=== PATIENT | female | born 1950 ===

== ENCOUNTER 2018-09-07 08:31 | Day surgery (SDC) | payer OTHER, MEDICARE ==
[2018-09-07] MEDS ORDERED: Nitroglycerin 50mg in D5W 0 MG/0 ML BOTTLE IV ONE (09:48)
[2018-09-07] MEDS ORDERED: Iodixanol 320 MG/ML 200 ML BOTTLE IV ONE (09:48)
[2018-09-07] MEDS ORDERED: Iodixanol 320 MG/ML 100 ML BOTTLE IV ONE (09:48)
[2018-09-07] MEDS ORDERED: Iohexol 350mgl/ml 50 ML ONE (09:48)
[2018-09-07] MEDS ORDERED: Lidocaine PF 2% (5 ml) Inj (For Cardiac Arrhy) ONE (09:48)
[2018-09-07] MEDS ORDERED: Midazolam 2 MG/2 ML VIAL ONE ×2 (10:14→10:31)
[2018-09-07] MEDS ORDERED: Naloxone 0.4 mg/ml Inj (Adult) ONE (11:08)
--- NOTE | 2018-09-07 11:57 | CARDCATH ---
PROCEDURE DATE: 09/07/2018 HISTORY: The patient is a 68-year-old woman who was transferred from [facility] for cardiac catheterization. The patient presented late with an acute inferior wall NH. The patient's past medical history is notable for diabetes mellitus, hypertension and hypercholesterolemia. She has had a previous stent placed in [facility] years ago. Because of this, catheterization was recommended. PROCEDURE: Left heart catheterization with coronary arteriography and left ventriculogram. The right femoral artery was cannulated with 6-Bolivian sheath. There were no complications. I performed moderate sedation which included the presence of an independent trained observer that assisted in monitoring the patient's level of consciousness and physiologic status. After administration of Versed and fentanyl, my intra-service time was 15 minutes. The findings on catheterization revealed a left ventricle that revealed inferior wall hypokinesis. Estimated ejection fraction of approximately 50%. Her coronary anatomy revealed heavily calcified arteries and diffuse atherosclerosis throughout her coronary tree. The patient had a right dominant circulation. In the proximal portion of the RCA, there is a patent stent, however the RCA is occluded in the midportion. Collaterals were seen going to the distal vessel. The left main artery was diffusely diseased and calcified. There is an eccentric 70% stenoses in the distal portion of the left main artery. The circumflex artery was diffusely diseased with a 90% stenosis at its ostium, followed by a 70% stenosis in the midportion. The LAD revealed diffuse atherosclerosis with a 50% stenosis at its ostium, followed by 70% to 80% stenosis in the midportion. Manual compression was used to close the femoral artery site due to diffuse peripheral vascular disease. The patient tolerated the procedure well. In summary, the procedure revealed diffuse calcification and atherosclerosis throughout her coronary tree. There is an eccentric 70% distal left main stenoses. A 90% ostial circumflex artery as well as disease in the mid circumflex artery. There is diffuse atherosclerosis in the LAD with a critical stenosis in midportion. The RCA is a dominant vessel and is occluded in its midportion. LV function reveals hypokinesia of the inferior wall with the anterior wall preserved with an estimated ejection fraction of approximately 50%. Given these findings, the patient's coronary disease should be treated with coronary artery bypass surgery. I have discussed this with the patient. I have discussed it with her drilling superintendent, Dr. Avila, who will make arrangements to transfer the patient to [facility] for coronary artery bypass surgery. Jim Lopez MD
[2018-09-07 23:10] VITALS: BMI 23.0
[2018-09-08] MEDS: Sodium Chloride 0.9% 1,000 ML IV SCH ×3 (08:52→21:00)
--- NOTE | 2018-09-08 13:21 | CP.PCM.CON ---
<Anirudh Escobar - Last Filed: 09/08/18 16:42> History of Present Illness - History of Present Illness History of Present Illness: Anirudh Escobar PGY1, Critical Care progress note for Dr Luz Maria Diggs Pt is a 68 yo female with a PMH of HTN, HLD, DM, who presented to the emergency department complaining of weakness and disorientation. Pt reports a mechanical fall yesterday. As well as 2 days of nausea and vomiting. Pt was found to have positive troponins and code heart was called. Pt to be transferred to [facility]. PMH: HTN, HLD, DM PSH: cardiac cath in the past Past Patient History - Past Medical History & Family History Past Medical History?: Yes - Past Social History Smoking Status: Never Smoked - CARDIAC Hx Hypercholesterolemia: Yes Hx Hypertension: Yes - PULMONARY Hx Respiratory Disorders: No - NEUROLOGICAL Hx Neurological Disorder: No - HEENT Hx HEENT Problems: Yes Hx Cataracts: Yes (bilat... no surgery yet) - RENAL Hx Chronic Kidney Disease: No - ENDOCRINE/METABOLIC Hx Diabetes Mellitus Type 2: Yes - HEMATOLOGICAL/ONCOLOGICAL Hx Blood Disorders: No - INTEGUMENTARY Hx Dermatological Problems: No - MUSCULOSKELETAL/RHEUMATOLOGICAL Hx Falls: No - GASTROINTESTINAL Hx Gastrointestinal Disorders: No - GENITOURINARY/GYNECOLOGICAL Hx Genitourinary Disorders: No - PSYCHIATRIC Hx Psychophysiologic Disorder: No - SURGICAL HISTORY Hx Surgeries: No Hx Cardiac Catheterization: Yes (ptca) - ANESTHESIA Hx Anesthesia: Yes Hx Anesthesia Reactions: No Meds Allergies/Adverse Reactions: Allergies Allergy/AdvReac Type Severity Reaction Status Date / Time No Known Allergies Allergy Verified 09/05/18 18:48 - Medications Medications: Current Medications Aspirin (Aspirin Chewable) 81 mg PO DAILY [facility] Last Admin: 09/08/18 09:27 Dose: 81 mg Atorvastatin Calcium (Lipitor) 10 mg PO DIN [facility] Last Admin: 09/07/18 18:24 Dose: 10 mg Enoxaparin Sodium (Lovenox) 50 mg SC Q12H [facility]; Protocol Sodium Chloride (Sodium Chloride 0.9%) 1,000 mls @ 100 mls/hr IV .Q10H [facility] Last Admin: 09/08/18 10:29 Dose: 100 mls/hr Physical Exam - Head Exam Head Exam: ATRAUMATIC, NORMOCEPHALIC - Eye Exam Eye Exam: EOMI - ENT Exam ENT Exam: Mucous Membranes Moist - Respiratory Exam Respiratory Exam: Clear to Auscultation Bilateral, NORMAL BREATHING PATTERN. absent: Accessory Muscle Use, Respiratory Distress - Cardiovascular Exam Cardiovascular Exam: RRR, +S1, +S2. absent: Diastolic murmur, Systolic Murmur - GI/Abdominal Exam GI & Abdominal Exam: Normal Bowel Sounds, Soft - Extremities Exam Extremities exam: Positive for: full ROM. Negative for: calf tenderness, pedal edema - Neurological Exam Neurological exam: Alert, Oriented x3 - Psychiatric Exam Psychiatric exam: Normal Affect, Normal Mood - Skin Skin Exam: Dry, Normal Color, Warm Results - Vital Signs Recent Vital Signs: Last Vital Signs Temp 98.5 F 09/08/18 04:00 Pulse 58 L 09/08/18 12:00 Resp 15 09/08/18 12:00 BP 115/52 L 09/08/18 12:00 Pulse Ox 100 09/08/18 12:00 - Labs Labs: Laboratory Results - last 24 hr 09/07/18 21:17 POC Glucose (mg/dL) 130 H Assessment & Plan - Assessment and Plan (Free Text) Assessment: Pt is a 68 yo female with a PMH of HTN, HLD, DM, who presented to the emergency department complaining of weakness and disorientation, pt was found to be having a STEMI. Plan: Neuro - AOx3 - Head CT: no acute findings Cadio - Maintain MAP >65 - Trop 14.9, 27.1, 48.2 - ASA, lipitor, metoprolol - ECHO LVH, EF 55% - Cardiac cath: 90% stenosis of circumflex at the ostium, LAD 50% stenosis at the ostium, with a 70-80% stenosis at the midportion - Cardio consulted, rec CABG at [facility] - ABG 29/7.45/43/27.9 GI - ALT/AST 24/146 - DM diet Heme - monitor H/H - Hgb 10.0 - INR 1.1 Nephro - BUN 35 - Cr 1.2 Endo - maintain euglycemia ID - WBC 15.4 Dispo: pt to be transferred to [facility] for CABG Pt seen, examined, assessment and plan discussed with Dr Luz Maria Escobar PGY1 - Date & Time Date: 09/08/18 Time: 08:00 <Nazanin Diggs - Last Filed: 09/08/18 17:52> Meds - Medications Medications: Current Medications Aspirin (Aspirin Chewable) 81 mg PO DAILY [facility] Last Admin: 09/08/18 09:27 Dose: 81 mg Atorvastatin Calcium (Lipitor) 10 mg PO DIN [facility] Last Admin: 09/08/18 16:11 Dose: 10 mg Enoxaparin Sodium (Lovenox) 50 mg SC Q12H [facility]; Protocol Last Admin: 09/08/18 13:57 Dose: 50 mg Sodium Chloride (Sodium Chloride 0.9%) 1,000 mls @ 100 mls/hr IV .Q10H [facility] Last Admin: 09/08/18 10:29 Dose: 100 mls/hr Metoprolol Tartrate (Lopressor) 12.5 mg PO BID [facility] Last Admin: 09/08/18 17:47 Dose: 12.5 mg Results - Vital Signs Recent Vital Signs: Last Vital Signs Temp 98.7 F 09/08/18 16:00 Pulse 87 09/08/18 17:47 Resp 15 09/08/18 12:00 BP 155/67 H 09/08/18 17:47 Pulse Ox 100 09/08/18 12:00 - Labs Result Diagrams: 09/08/18 13:30 09/08/18 13:30 Labs: Laboratory Results - last 24 hr 09/07/18 09/08/18 09/08/18 21:17 13:30 13:30 WBC 11.5 H RBC 3.29 L Hgb 9.3 L Hct 29.2 L MCV 88.8 MCH 28.3 MCHC 31.8 RDW 13.0 Plt Count 173 MPV 9.5 Sodium 140 Potassium 4.2 Chloride 106 Carbon Dioxide 29 Anion Gap 9 L BUN 30 H Creatinine 0.8 Est GFR ( Amer) > 60 Est GFR (Non-Af Amer) > 60 POC Glucose (mg/dL) 130 H Random Glucose 108 Calcium 8.2 L Addendum Addendum: 09/08/18 17:52 MICU Attending Addendum Patient seen and examined [place] discussed with housestaff; agree with resident note above with the following additions/exceptions: 68F with HTN, HLD, DM admitted yesterday with STEMI found to have significant 3vessesl disease. No stents placed. Awaiting transfer to [place] [facility] for CABG Hemodynamically stable no cp, no sob f/u cardio recs on ASA BB statin and lovenox BID Rest of care as in above resident note Nazanin Diggs MD MICU Attending
[2018-09-08 13:38] LABS: HEMOGLOBIN 9.3 g/dL (12.0-16.0); MEAN CELL VOLUME 88.8 fl (80.0-105.0); MEAN CORPUSCULAR HEMOGLOBIN 28.3 pg (25.0-35.0); MEAN CORPUSCULAR HGB CONC 31.8 g/dl (31.0-37.0); MEAN PLATELET VOLUME 9.5 fl (7.0-11.0); RBC 3.29 10^6/uL (3.5-6.1); WHITE BLOOD COUNT 11.5 10^3/uL (4.5-11.0)
[2018-09-08 13:47] LABS: BLOOD UREA NITROGEN 30 mg/dL (7-21); CALCIUM 8.2 mg/dL (8.4-10.5); GFR NON-AFRICAN AMERICAN > 60
[2018-09-08] MEDS: Enoxaparin 60 mg Syringe SC SCH (13:57)
--- NOTE | 2018-09-08 17:06 | PN ---
DATE: 09/08/[address] Jim Lopez. SUBJECTIVE: The patient denies any chest pain. No groin bleeding. PHYSICAL EXAMINATION: VITAL SIGNS: Blood pressure 115/52, heart rate 58, temperature 98.5, respirations 20. HEENT: Normocephalic. CHEST: Clear. HEART: S1 and S2, regular. EXTREMITIES: No hematoma. LABORATORY DATA: The most recent hemoglobin and hematocrit from yesterday 10 and 30.3, white count 15.4, platelet count 193,000. Yesterday's SMA-7: Sodium 142, potassium 4.1, chloride 104, CO2 of 32, glucose 107, BUN 35, creatinine 1.2. Cardiac catheterization performed yesterday revealed diffuse calcification and atherosclerosis throughout the coronary tree. Eccentric 72% distal left main stenosis, 90% ostial circumflex as well as mid circumflex artery stenosis, diffuse atherosclerosis of the LAD with critical stenosis in the mid portion, dominant RCA with occlusion in its midportion, ejection fraction estimated at 50%. ASSESSMENT: 1. Status post acute anterior wall myocardial infarction. 2. Left main as well as significant three-vessel coronary artery disease. RECOMMENDATION: Continue aspirin 81 mg twice a day and Lipitor 10 mg once a day. Obtain CBC and SMA-7. Start therapeutic subcutaneous Lovenox until the patient is transferred to [facility] for planned coronary artery bypass surgery. Sean King MD
[2018-09-08] MEDS ORDERED: Lidocaine 5% Patch TD STA (22:33)
[2018-09-09] MEDS: Enoxaparin 60 mg Syringe SC SCH ×2 (03:59→14:14)
[2018-09-09] MEDS: Sodium Chloride 0.9% 1,000 ML IV SCH (07:08)
[2018-09-09] MEDS: POLYETHYLENE GLYCOL 3350 17 GM/Dose PACKET PO SCH (09:30)
--- NOTE | 2018-09-09 09:32 | CP.CCUPN ---
<Gwendolyn Geller - Last Filed: 09/09/18 12:52> CCU Subjective - Physician Review Subjective (Free Text): Gwendolyn Geller DO, PGY-2: ICU Progress Note Patient was seen and examined at bedside. She denies any chest pain or shortness of breath. She is on NC 2L of oxygen. She has not had a BM in four days. 09/09/18 09:32 09/09/18 09:44 Critical Care Time Spent (in minutes): 35 CCU Objective - Vital Signs / Intake & Output Vital Signs (Last 4 hours): Vital Signs Pulse Resp BP Pulse Ox 09/09/18 09:12 82 156/75 H 09/09/18 07:00 78 23 141/72 95 09/09/18 06:50 84 38 H 96 09/09/18 06:40 84 20 98 09/09/18 06:30 79 16 98 09/09/18 06:20 79 17 98 09/09/18 06:10 78 16 98 09/09/18 06:00 79 19 130/64 98 09/09/18 05:50 80 18 99 09/09/18 05:40 80 18 100 Intake and Output (Last 8hrs): Intake & Output 09/08/18 09/09/18 09/09/18 22:59 06:59 14:59 Intake Total 240 1220 Output Total 200 200 Balance 40 1020 Weight 124 lb 2 oz Intake: IV 1100 .09 1100 Oral 240 120 Output: Urine 200 200 Urine, Voided 200 200 Other: # Voids Urine, Voided 1 # Bowel Movements 0 - Physical Exam Head: Positive for: Atraumatic, Normocephalic Pupils: Positive for: PERRL Extroacular Muscles: Positive for: EOMI Conjunctiva: Positive for: Normal Ears: Positive for: Normal Mouth: Positive for: Moist Mucous Membranes Pharnyx: Positive for: Normal. Negative for: ERYTHEMA, TONSILS ENLARGED Neck: Positive for: Normal Range of Motion Respiratory/Chest: Positive for: Clear to Auscultation. Negative for: Accessory Muscle Use Cardiovascular: Positive for: Regular Rate and Rhythm, Normal S1, S2 Abdomen: Positive for: Normal Bowel Sounds. Negative for: Rebound, Guarding Back: Positive for: Normal Inspection Upper Extremity: Positive for: Normal Inspection. Negative for: Edema Lower Extremity: Positive for: Normal Inspection. Negative for: Edema, CALF TENDERNESS Neurological: Positive for: CN II-XII Intact, Speech Normal Skin: Positive for: Warm, Dry, Normal Color. Negative for: Rashes Psychiatric: Positive for: Alert, Oriented x 3, Normal Insight, Normal Concentration - Medications Active Medications: Active Medications Generic Name Dose Route Start Last Admin Trade Name Lenardq PRN Reason Stop Dose Admin Aspirin 81 mg 09/08/18 10:00 09/09/18 09:11 Aspirin Chewable PO 81 mg DAILY [facility] Administration Atorvastatin Calcium 10 mg 09/07/18 17:00 09/08/18 16:11 Lipitor PO 10 mg DIN [facility] Administration Enoxaparin Sodium 50 mg 09/08/18 13:15 09/09/18 03:59 Lovenox SC 50 mg Q12H [facility] Administration Protocol Sodium Chloride 1,000 mls @ 100 mls/hr 09/07/18 11:30 09/09/18 07:08 Sodium Chloride 0.9% IV 100 mls/hr .Q10H [facility] Administration Insulin Human Lispro 0 units 09/09/18 11:30 Humalog Med SC ACHS [facility] Protocol Metoprolol Tartrate 12.5 mg 09/08/18 18:00 09/09/18 09:12 Lopressor PO 12.5 mg BID [facility] Administration Polyethylene Glycol 17 gm 09/09/18 10:00 Miralax PO DAILY [facility] - Patient Studies Lab Studies: Lab Studies 09/08/18 09/08/18 Range/Units 13:30 13:30 WBC 11.5 H (4.5-11.0) 10^3/uL RBC 3.29 L (3.5-6.1) 10^6/uL Hgb 9.3 L (12.0-16.0) g/dL Hct 29.2 L (36.0-48.0) % MCV 88.8 (80.0-105.0) fl MCH 28.3 (25.0-35.0) pg MCHC 31.8 (31.0-37.0) g/dl RDW 13.0 (11.5-14.5) % Plt Count 173 (120.0-450.0) 10^3/uL MPV 9.5 (7.0-11.0) fl Sodium 140 (132-148) mmol/L Potassium 4.2 (3.6-5.0) mmol/L Chloride 106 (98-107) mmol/L Carbon Dioxide 29 (21-33) mmol/L Anion Gap 9 L (10-20) BUN 30 H (7-21) mg/dL Creatinine 0.8 (0.7-1.2) mg/dl Est GFR ( Amer) > 60 Est GFR (Non-Af Amer) > 60 Random Glucose 108 (70-110) mg/dL Calcium 8.2 L (8.4-10.5) mg/dL Laboratory Results - last 24 hr 09/08/18 09/08/18 13:30 13:30 WBC 11.5 H RBC 3.29 L Hgb 9.3 L Hct 29.2 L MCV 88.8 MCH 28.3 MCHC 31.8 RDW 13.0 Plt Count 173 MPV 9.5 Sodium 140 Potassium 4.2 Chloride 106 Carbon Dioxide 29 Anion Gap 9 L BUN 30 H Creatinine 0.8 Est GFR ( Amer) > 60 Est GFR (Non-Af Amer) > 60 Random Glucose 108 Calcium 8.2 L Critical Care Progress Note - Ventilator Checklist Head of Bed 30 Degrees: Yes PUD Prophalyxis: Yes DVT Prophylaxis: Yes - Nutrition Nutrition: Nutrition Category Date Time Status Diabetic [Consistent Carbohydrate] [DIET] Diets 09/07/18 Lunch Ordered Assessment/Plan - Assessment and Plan (Free Text) Assessment: Pt is a 68 yo female with a PMH of HTN, HLD, DM, who presented to the emergency department complaining of weakness and disorientation, pt was found to be having an inferior wall STEMI. Plan: Neuro - AOx3 - Head CT: no acute findings Cadio - Maintain MAP >65 - Trop 14.9, 27.1, 48.2 - ASA, lipitor, metoprolol - ECHO LVH, EF 55% - Cardiac cath: 90% stenosis of circumflex at the ostium, LAD 50% stenosis at the ostium, with a 70-80% stenosis at the midportion - Cardio consulted, rec CABG at [facility] - ABG 29/7.45/43/27.9 GI - ALT/AST 24/146 - DM diet Heme - monitor H/H - Hgb 10.0 - INR 1.1 Nephro - BUN 35 - Cr 1.2 Endo - maintain euglycemia ID - WBC 15.4 Dispo: pt to be transferred to [place] for CABG Pt seen, examined, assessment and plan discussed with Dr Nazanin Diggs <Nazanin Diggs - Last Filed: 09/09/18 17:51> CCU Objective - Vital Signs / Intake & Output Vital Signs (Last 4 hours): Vital Signs Pulse Resp BP Pulse Ox 09/09/18 17:08 84 146/62 09/09/18 16:01 82 09/09/18 14:00 75 20 133/63 99 Intake and Output (Last 8hrs): Intake & Output 09/09/18 09/09/18 09/09/18 06:59 14:59 22:59 Intake Total 1220 Output Total 200 Balance 1020 Weight 56.302 kg Intake: IV 1100 .09 1100 Oral 120 Output: Urine 200 Urine, Voided 200 Other: # Bowel Movements 0 - Medications Active Medications: Active Medications Generic Name Dose Route Start Last Admin Trade Name Freq PRN Reason Stop Dose Admin Aspirin 81 mg 09/08/18 10:00 09/09/18 09:11 Aspirin Chewable PO 81 mg DAILY [facility] Administration Atorvastatin Calcium 10 mg 09/07/18 17:00 09/09/18 17:08 Lipitor PO 10 mg DIN [facility] Administration Enoxaparin Sodium 50 mg 09/08/18 13:15 09/09/18 14:14 Lovenox SC 50 mg Q12H [facility] Administration Protocol Sodium Chloride 1,000 mls @ 80 mls/hr 09/09/18 17:02 09/09/18 17:07 Sodium Chloride 0.9% IV 80 mls/hr .[id number] [facility] Administration Insulin Human Lispro 0 units 09/09/18 11:30 09/09/18 17:06 Humalog Med SC 1 u ACHS [facility] Administration Protocol Metoprolol Tartrate 12.5 mg 09/08/18 18:00 09/09/18 17:08 Lopressor PO 12.5 mg BID [facility] Administration Polyethylene Glycol 17 gm 09/09/18 10:00 09/09/18 09:30 Miralax PO 17 gm DAILY [facility] Administration - Patient Studies Lab Studies: Lab Studies 09/09/18 09/09/18 09/09/18 Range/Units 17:05 12:06 09:45 WBC (4.5-11.0) 10^3/uL RBC (3.5-6.1) 10^6/uL Hgb (12.0-16.0) g/dL Hct (36.0-48.0) % MCV (80.0-105.0) fl MCH (25.0-35.0) pg MCHC (31.0-37.0) g/dl RDW (11.5-14.5) % Plt Count (120.0-450.0) 10^3/uL MPV (7.0-11.0) fl Neut % (Auto) (50.0-68.0) % Lymph % (Auto) (22.0-35.0) % [place] % (Auto) (1.0-6.0) % Eos % (Auto) (1.5-5.0) % Baso % (Auto) (0.0-3.0) % Lymph # (Auto) (1.2-3.4) [place] # (Auto) (0.1-0.6) Eos # (Auto) (0.0-0.7) Baso # (Auto) (0.0-2.0) K/mm3 Absolute Neuts (auto) (1.4-6.5) PT (9.4-12.5) SECONDS INR Sodium 141 (132-148) mmol/L Potassium 4.0 (3.6-5.0) mmol/L Chloride 108 H (98-107) mmol/L Carbon Dioxide 26 (21-33) mmol/L Anion Gap 11 (10-20) BUN 24 H (7-21) mg/dL Creatinine 0.9 (0.7-1.2) mg/dl Est GFR ( Amer) > 60 Est GFR (Non-Af Amer) > 60 POC Glucose (mg/dL) 156 H 124 H (65-110) mg/dL Random Glucose 146 H (70-110) mg/dL Calcium 8.1 L (8.4-10.5) mg/dL Phosphorus 2.5 (2.5-4.5) mg/dL Magnesium 2.2 (1.7-2.2) mg/dL Total Bilirubin 0.9 (0.2-1.3) mg/dL AST 59 H D (14-36) U/L ALT 35 (7-56) U/L Alkaline Phosphatase 71 (38-126) U/L Total Protein 6.3 (5.8-8.3) g/dL Albumin 3.0 (3.0-4.8) g/dL Globulin 3.3 gm/dL Albumin/Globulin Ratio 0.9 L (1.1-1.8) 09/09/18 09/09/18 09/09/18 Range/Units 09:45 09:45 08:00 WBC 10.5 (4.5-11.0) 10^3/uL RBC 3.31 L (3.5-6.1) 10^6/uL Hgb 9.4 L (12.0-16.0) g/dL Hct 28.9 L (36.0-48.0) % MCV 87.3 (80.0-105.0) fl MCH 28.4 (25.0-35.0) pg MCHC 32.5 (31.0-37.0) g/dl RDW 12.8 (11.5-14.5) % Plt Count 203 (120.0-450.0) 10^3/uL MPV 9.5 (7.0-11.0) fl Neut % (Auto) 79.6 H (50.0-68.0) % Lymph % (Auto) 10.8 L (22.0-35.0) % [place] % (Auto) 9.2 H (1.0-6.0) % Eos % (Auto) 0.3 L (1.5-5.0) % Baso % (Auto) 0.1 (0.0-3.0) % Lymph # (Auto) 1.1 L (1.2-3.4) [place] # (Auto) 1.0 H (0.1-0.6) Eos # (Auto) 0.0 (0.0-0.7) Baso # (Auto) 0.01 (0.0-2.0) K/mm3 Absolute Neuts (auto) 8.34 H (1.4-6.5) PT 13.9 H (9.4-12.5) SECONDS INR 1.23 Sodium (132-148) mmol/L Potassium (3.6-5.0) mmol/L Chloride (98-107) mmol/L Carbon Dioxide (21-33) mmol/L Anion Gap (10-20) BUN (7-21) mg/dL Creatinine (0.7-1.2) mg/dl Est GFR ( Amer) Est GFR (Non-Af Amer) POC Glucose (mg/dL) 101 (65-110) mg/dL Random Glucose (70-110) mg/dL Calcium (8.4-10.5) mg/dL Phosphorus (2.5-4.5) mg/dL Magnesium (1.7-2.2) mg/dL Total Bilirubin (0.2-1.3) mg/dL AST (14-36) U/L ALT (7-56) U/L Alkaline Phosphatase (38-126) U/L Total Protein (5.8-8.3) g/dL Albumin (3.0-4.8) g/dL Globulin gm/dL Albumin/Globulin Ratio (1.1-1.8) Laboratory Results - last 24 hr 09/09/18 09/09/18 09/09/18 08:00 09:45 09:45 WBC 10.5 RBC 3.31 L Hgb 9.4 L Hct 28.9 L MCV 87.3 MCH 28.4 MCHC 32.5 RDW 12.8 Plt Count 203 MPV 9.5 Neut % (Auto) 79.6 H Lymph % (Auto) 10.8 L [place] % (Auto) 9.2 H Eos % (Auto) 0.3 L Baso % (Auto) 0.1 Lymph # (Auto) 1.1 L [place] # (Auto) 1.0 H Eos # (Auto) 0.0 Baso # (Auto) 0.01 Absolute Neuts (auto) 8.34 H PT 13.9 H INR 1.23 Sodium Potassium Chloride Carbon Dioxide Anion Gap BUN Creatinine Est GFR ( Amer) Est GFR (Non-Af Amer) POC Glucose (mg/dL) 101 Random Glucose Calcium Phosphorus Magnesium Total Bilirubin AST ALT Alkaline Phosphatase Total Protein Albumin Globulin Albumin/Globulin Ratio 09/09/18 09/09/18 09/09/18 09:45 12:06 17:05 WBC RBC Hgb Hct MCV MCH MCHC RDW Plt Count MPV Neut % (Auto) Lymph % (Auto) [place] % (Auto) Eos % (Auto) Baso % (Auto) Lymph # (Auto) [place] # (Auto) Eos # (Auto) Baso # (Auto) Absolute Neuts (auto) PT INR Sodium 141 Potassium 4.0 Chloride 108 H Carbon Dioxide 26 Anion Gap 11 BUN 24 H Creatinine 0.9 Est GFR ( Amer) > 60 Est GFR (Non-Af Amer) > 60 POC Glucose (mg/dL) 124 H 156 H Random Glucose 146 H Calcium 8.1 L Phosphorus 2.5 Magnesium 2.2 Total Bilirubin 0.9 AST 59 H D ALT 35 Alkaline Phosphatase 71 Total Protein 6.3 Albumin 3.0 Globulin 3.3 Albumin/Globulin Ratio 0.9 L Critical Care Progress Note - Nutrition Nutrition: Nutrition Category Date Time Status Diabetic [Consistent Carbohydrate] [DIET] Diets 09/07/18 Lunch Ordered Addendum Addendum: 09/09/18 17:51 MICU Attending Addendum Patient seen and examined Zaynab discussed with housestaff; agree with resident note above with the following additions/exceptions: 68F with HTN, HLD, DM admitted yesterday with STEMI found to have significant 3vessesl disease. No stents placed. Awaiting transfer to [facility] for CABG remains Hemodynamically stable no cp, no sob f/u cardio recs - may transfer to tele if ok with cardio cont ASA BB statin and lovenox BID Rest of care as in above resident note Nazanin Diggs MD MICU Attending
[2018-09-09 09:54] LABS: BASO # 0.01 K/mm3 (0.0-2.0); BASO % 0.1 % (0.0-3.0); EOS % 0.3 % (1.5-5.0); HEMOGLOBIN 9.4 g/dL (12.0-16.0); LYMPH # 1.1 (1.2-3.4); LYMPH % 10.8 % (22.0-35.0); MEAN CELL VOLUME 87.3 fl (80.0-105.0); MEAN CORPUSCULAR HEMOGLOBIN 28.4 pg (25.0-35.0); MEAN CORPUSCULAR HGB CONC 32.5 g/dl (31.0-37.0); MEAN PLATELET VOLUME 9.5 fl (7.0-11.0); MONO % 9.2 % (1.0-6.0); RBC 3.31 10^6/uL (3.5-6.1); RED CELL DISTRIBUTION WIDTH 12.8 % (11.5-14.5); WHITE BLOOD COUNT 10.5 10^3/uL (4.5-11.0)
[2018-09-09 10:04] LABS: ALB/GLOB RATIO 0.9 (1.1-1.8); ALT/SGPT 35 U/L (7-56); AST/SGOT 59 U/L (14-36); BLOOD UREA NITROGEN 24 mg/dL (7-21); CALCIUM 8.1 mg/dL (8.4-10.5); GFR NON-AFRICAN AMERICAN > 60
[2018-09-09 10:11] LABS: INR 1.23; PROTHROMBIN TIME 13.9 SECONDS (9.4-12.5)
[2018-09-09] MEDS: Insulin Lispro (humaLOG) MEDIUM Coverage SC SCH ×3 (14:13→22:00)
[2018-09-09] MEDS ORDERED: Sodium Chloride 0.9% 1,000 ML IV SCH (17:02)
--- NOTE | 2018-09-09 22:16 | PN ---
DATE: 09/09/2018 SUBJECTIVE: The patient denies any chest pain. No reported ventricular arrhythmia and no reported groin bleeding. OBJECTIVE: VITAL SIGNS: Blood pressure 133/63, heart rate 78, temperature 98.8, respiration 20. HEENT: Normocephalic. CHEST: Clear. HEART: S1, S2 regular. EXTREMITIES: No edema. LABORATORY DATA: Today's hemoglobin and hematocrit 9.4 and 28.9, white count and platelet count are within normal limits. SMA-7: Sodium 141, potassium 4, chloride 108, CO2 26, glucose 146, BUN 24, creatinine 0.9. Today's INR is 1.23. ASSESSMENT: 1. Status post ST-elevation myocardial infarction. 2. Left main vessel disease with significant three-vessel coronary artery disease, awaiting transfer of coronary artery bypass surgery at [facility]. RECOMMENDATIONS: Case was discussed with local flatbed driver and the medical team. Continue aspirin 81 mg once a day, therapeutic subcutaneous Lovenox at 50 mg twice a day, Lopressor 12.5 mg twice a day and Lipitor 10 mg once a day. Sean King MD
[2018-09-10] MEDS: Enoxaparin 60 mg Syringe SC SCH ×2 (02:17→13:07)
[2018-09-10 06:21] LABS: URINE BILIRUBIN NEGATIVE (NEGATIVE); URINE BLOOD NEGATIVE (NEGATIVE); URINE GLUCOSE (UA) NEGATIVE (NEGATIVE); URINE LEUKOCYTE ESTERASE MODERATE Leu/uL (NEGATIVE); URINE PROTEIN NEGATIVE mg/dL (<30 mg/dL); URINE UROBILINOGEN 0.2 E.U./dL (<1 E.U./dL)
[2018-09-10 06:36] LABS: URINE APPEARANCE SL CLOUDY (CLEAR); URINE COLOR YELLOW (YELLOW)
[2018-09-10 06:39] LABS: URINE BACTERIA SMALL /hpf; URINE HYALINE CAST 0 - 2 /hpf; URINE RBC 0 - 2 /hpf (0-2)
[2018-09-10 07:09] LABS: BASO # 0.03 K/mm3 (0.0-2.0); BASO % 0.3 % (0.0-3.0); EOS # 0.2 (0.0-0.7); HEMOGLOBIN 9.4 g/dL (12.0-16.0); LYMPH # 1.9 (1.2-3.4); LYMPH % 18.2 % (22.0-35.0); MEAN CELL VOLUME 85.7 fl (80.0-105.0); MEAN CORPUSCULAR HEMOGLOBIN 28.7 pg (25.0-35.0); MEAN CORPUSCULAR HGB CONC 33.5 g/dl (31.0-37.0); MONO # 1.2 (0.1-0.6); MONO % 10.8 % (1.0-6.0); RBC 3.28 10^6/uL (3.5-6.1); RED CELL DISTRIBUTION WIDTH 12.7 % (11.5-14.5); WHITE BLOOD COUNT 10.6 10^3/uL (4.5-11.0)
[2018-09-10 07:27] LABS: ALB/GLOB RATIO 0.9 (1.1-1.8); ALT/SGPT 25 U/L (7-56); AST/SGOT 44 U/L (14-36); BLOOD UREA NITROGEN 23 mg/dL (7-21); CALCIUM 8.5 mg/dL (8.4-10.5); GFR NON-AFRICAN AMERICAN > 60
[2018-09-10] MEDS: Insulin Lispro (humaLOG) MEDIUM Coverage SC SCH ×3 (07:47→16:26)
[2018-09-10] MEDS: POLYETHYLENE GLYCOL 3350 17 GM/Dose PACKET PO SCH (09:21)
--- NOTE | 2018-09-10 09:47 | RAD ---
Date of service: 09/09/2018 HISTORY: fever, leukocytosis COMPARISON: No prior. FINDINGS: LUNGS: Right-sided perihilar infiltrate PLEURA: No significant pleural effusion identified, no pneumothorax apparent. CARDIOVASCULAR: No aortic atherosclerotic calcification present. Mild cardiomegaly. No pulmonary vascular congestion. OSSEOUS STRUCTURES: No significant abnormalities. VISUALIZED UPPER ABDOMEN: Normal. OTHER FINDINGS: None. IMPRESSION: Right-sided perihilar infiltrate
[2018-09-10] MEDS ORDERED: cefTRIAXone 1 gm 1 GM/100 ML BAG IVPB SCH (10:00)
[2018-09-10] MEDS: Sodium Chloride 0.9% 1,000 ML IV SCH (11:11)
--- NOTE | 2018-09-10 11:41 | CP.CCUPN ---
<Anirudh Escobar - Last Filed: 09/10/18 11:52> CCU Subjective - Physician Review Events Since Last Encounter (Free Text): 09/10/18 11:37 no acute events overnight Subjective (Free Text): 09/10/18 11:38 Pt seen and examined this morning. Pt has no new complaints at this time. CCU Objective - Vital Signs / Intake & Output Vital Signs (Last 4 hours): Vital Signs Pulse Resp BP Pulse Ox 09/10/18 11:01 133/70 09/10/18 10:00 79 22 137/66 96 09/10/18 09:00 83 21 137/74 99 09/10/18 08:00 85 21 135/73 97 Intake and Output (Last 8hrs): Intake & Output 09/09/18 09/10/18 09/10/18 22:59 06:59 14:59 Intake Total 120 120 Output Total 400 400 Balance -280 -280 Weight 126 lb 2 oz Intake: Oral 120 120 Output: Urine 400 400 Urine, Voided 400 400 Other: # Bowel Movements 0 0 - Physical Exam Physical Exam Limitations: Negative for: Altered Mental Status Head: Positive for: Atraumatic, Normocephalic Pupils: Positive for: PERRL Extroacular Muscles: Positive for: EOMI Conjunctiva: Positive for: Normal Ears: Positive for: Normal Mouth: Positive for: Moist Mucous Membranes Pharnyx: Positive for: Normal. Negative for: ERYTHEMA, TONSILS ENLARGED Neck: Positive for: Normal Range of Motion Respiratory/Chest: Positive for: Clear to Auscultation. Negative for: Accessory Muscle Use Cardiovascular: Positive for: Regular Rate and Rhythm, Normal S1, S2 Abdomen: Positive for: Normal Bowel Sounds. Negative for: Rebound, Guarding Back: Positive for: Normal Inspection Upper Extremity: Positive for: Normal Inspection. Negative for: Edema Lower Extremity: Positive for: Normal Inspection. Negative for: Edema, CALF TENDERNESS Neurological: Positive for: CN II-XII Intact, Speech Normal Skin: Positive for: Warm, Dry, Normal Color. Negative for: Rashes Psychiatric: Positive for: Alert, Oriented x 3, Normal Insight, Normal Concentration - Medications Active Medications: Active Medications Generic Name Dose Route Start Last Admin Trade Name Freq PRN Reason Stop Dose Admin Acetaminophen 650 mg 09/09/18 18:20 09/09/18 18:38 Tylenol 325mg Tab PO 650 mg Q6H PRN Administration Fever >100.4 F Amlodipine Besylate 5 mg 09/10/18 10:00 09/10/18 09:22 Norvasc PO 5 mg DAILY ARIS Administration Aspirin 81 mg 09/08/18 10:00 09/10/18 09:20 Aspirin Chewable PO 81 mg DAILY ARIS Administration Atorvastatin Calcium 10 mg 09/07/18 17:00 09/09/18 17:08 Lipitor PO 10 mg DIN ARIS Administration Enoxaparin Sodium 50 mg 09/08/18 13:15 09/10/18 02:17 Lovenox SC 50 mg Q12H ARIS Administration Protocol Hydrochlorothiazide 25 mg 09/10/18 10:00 09/10/18 09:20 Hydrodiuril PO 25 mg DAILY ARIS Administration Ceftriaxone Sodium 1 gm in 100 mls @ 100 mls/hr 09/10/18 10:00 09/10/18 09:22 Rocephin 1 Gram Ivpb IVPB 09/12/18 10:59 100 mls/hr DAILY ARIS Administration Protocol Insulin Human Lispro 0 units 09/09/18 11:30 09/10/18 11:15 Humalog Med SC 1 u ACHS ARIS Administration Protocol Losartan Potassium 100 mg 09/10/18 10:00 09/10/18 09:20 Cozaar PO 100 mg DAILY ARIS Administration Metoprolol Tartrate 12.5 mg 09/08/18 18:00 09/10/18 09:20 Lopressor PO 12.5 mg BID ARIS Administration Polyethylene Glycol 17 gm 09/09/18 10:00 09/10/18 09:21 Miralax PO 17 gm DAILY ARIS Administration - Patient Studies Lab Studies: Lab Studies 09/10/18 09/10/18 09/09/18 Range/Units 06:50 06:50 22:48 WBC 10.6 (4.5-11.0) 10^3/uL RBC 3.28 L (3.5-6.1) 10^6/uL Hgb 9.4 L (12.0-16.0) g/dL Hct 28.1 L (36.0-48.0) % MCV 85.7 (80.0-105.0) fl MCH 28.7 (25.0-35.0) pg MCHC 33.5 (31.0-37.0) g/dl RDW 12.7 (11.5-14.5) % Plt Count 218 (120.0-450.0) 10^3/uL MPV 9.0 (7.0-11.0) fl Neut % (Auto) 68.7 H (50.0-68.0) % Lymph % (Auto) 18.2 L (22.0-35.0) % Jewell % (Auto) 10.8 H (1.0-6.0) % Eos % (Auto) 2.0 (1.5-5.0) % Baso % (Auto) 0.3 (0.0-3.0) % Lymph # (Auto) 1.9 (1.2-3.4) Jewell # (Auto) 1.2 H (0.1-0.6) Eos # (Auto) 0.2 (0.0-0.7) Baso # (Auto) 0.03 (0.0-2.0) K/mm3 Absolute Neuts (auto) 7.31 H (1.4-6.5) Sodium 141 (132-148) mmol/L Potassium 3.9 (3.6-5.0) mmol/L Chloride 107 (98-107) mmol/L Carbon Dioxide 29 (21-33) mmol/L Anion Gap 9 L (10-20) BUN 23 H (7-21) mg/dL Creatinine 0.9 (0.7-1.2) mg/dl Est GFR ( Amer) > 60 Est GFR (Non-Af Amer) > 60 POC Glucose (mg/dL) (65-110) mg/dL Random Glucose 129 H (70-110) mg/dL Calcium 8.5 (8.4-10.5) mg/dL Total Bilirubin 0.7 (0.2-1.3) mg/dL AST 44 H D (14-36) U/L ALT 25 (7-56) U/L Alkaline Phosphatase 73 (38-126) U/L Total Protein 6.3 (5.8-8.3) g/dL Albumin 3.0 (3.0-4.8) g/dL Globulin 3.3 gm/dL Albumin/Globulin Ratio 0.9 L (1.1-1.8) Urine Color Yellow (YELLOW) Urine Appearance Sl cloudy (CLEAR) Urine pH 6.0 (4.7-8.0) Ur Specific [place] 1.020 (1.005-1.035) Urine Protein Negative (<30 mg/dL) mg/dL Urine Glucose (UA) Negative (NEGATIVE) mg/dL Urine Ketones Negative (NEGATIVE) mg/dL Urine Blood Negative (NEGATIVE) Urine Nitrate Negative (NEGATIVE) Urine Bilirubin Negative (NEGATIVE) Urine Urobilinogen 0.2 (<1 E.U./dL) E.U./dL Ur Leukocyte Esterase Moderate H (NEGATIVE) Ed/uL Urine RBC 0 - 2 (0-2) /hpf Urine WBC 5 - 10 H (0-6) /hpf Ur Epithelial Cells 1 - 3 (0-5) /hpf Urine Bacteria Small (NONE) /hpf Hyaline Casts 0 - 2 (NONE) /hpf Influenza Typ A,B (EIA) (NEGATIVE) 09/09/18 09/09/18 09/09/18 Range/Units 21:46 18:45 17:05 WBC (4.5-11.0) 10^3/uL RBC (3.5-6.1) 10^6/uL Hgb (12.0-16.0) g/dL Hct (36.0-48.0) % MCV (80.0-105.0) fl MCH (25.0-35.0) pg MCHC (31.0-37.0) g/dl RDW (11.5-14.5) % Plt Count (120.0-450.0) 10^3/uL MPV (7.0-11.0) fl Neut % (Auto) (50.0-68.0) % Lymph % (Auto) (22.0-35.0) % Jewell % (Auto) (1.0-6.0) % Eos % (Auto) (1.5-5.0) % Baso % (Auto) (0.0-3.0) % Lymph # (Auto) (1.2-3.4) Jewell # (Auto) (0.1-0.6) Eos # (Auto) (0.0-0.7) Baso # (Auto) (0.0-2.0) K/mm3 Absolute Neuts (auto) (1.4-6.5) Sodium (132-148) mmol/L Potassium (3.6-5.0) mmol/L Chloride (98-107) mmol/L Carbon Dioxide (21-33) mmol/L Anion Gap (10-20) BUN (7-21) mg/dL Creatinine (0.7-1.2) mg/dl Est GFR ( Amer) Est GFR (Non-Af Amer) POC Glucose (mg/dL) 164 H 156 H (65-110) mg/dL Random Glucose (70-110) mg/dL Calcium (8.4-10.5) mg/dL Total Bilirubin (0.2-1.3) mg/dL AST (14-36) U/L ALT (7-56) U/L Alkaline Phosphatase (38-126) U/L Total Protein (5.8-8.3) g/dL Albumin (3.0-4.8) g/dL Globulin gm/dL Albumin/Globulin Ratio (1.1-1.8) Urine Color (YELLOW) Urine Appearance (CLEAR) Urine pH (4.7-8.0) Ur Specific [place] (1.005-1.035) Urine Protein (<30 mg/dL) mg/dL Urine Glucose (UA) (NEGATIVE) mg/dL Urine Ketones (NEGATIVE) mg/dL Urine Blood (NEGATIVE) Urine Nitrate (NEGATIVE) Urine Bilirubin (NEGATIVE) Urine Urobilinogen (<1 E.U./dL) E.U./dL Ur Leukocyte Esterase (NEGATIVE) Ed/uL Urine RBC (0-2) /hpf Urine WBC (0-6) /hpf Ur Epithelial Cells (0-5) /hpf Urine Bacteria (NONE) /hpf Hyaline Casts (NONE) /hpf Influenza Typ A,B (EIA) Negative for flu a/b (NEGATIVE) 09/09/18 09/09/18 Range/Units 12:06 08:00 WBC (4.5-11.0) 10^3/uL RBC (3.5-6.1) 10^6/uL Hgb (12.0-16.0) g/dL Hct (36.0-48.0) % MCV (80.0-105.0) fl MCH (25.0-35.0) pg MCHC (31.0-37.0) g/dl RDW (11.5-14.5) % Plt Count (120.0-450.0) 10^3/uL MPV (7.0-11.0) fl Neut % (Auto) (50.0-68.0) % Lymph % (Auto) (22.0-35.0) % Jewell % (Auto) (1.0-6.0) % Eos % (Auto) (1.5-5.0) % Baso % (Auto) (0.0-3.0) % Lymph # (Auto) (1.2-3.4) Jewell # (Auto) (0.1-0.6) Eos # (Auto) (0.0-0.7) Baso # (Auto) (0.0-2.0) K/mm3 Absolute Neuts (auto) (1.4-6.5) Sodium (132-148) mmol/L Potassium (3.6-5.0) mmol/L Chloride (98-107) mmol/L Carbon Dioxide (21-33) mmol/L Anion Gap (10-20) BUN (7-21) mg/dL Creatinine (0.7-1.2) mg/dl Est GFR ( Amer) Est GFR (Non-Af Amer) POC Glucose (mg/dL) 124 H 101 (65-110) mg/dL Random Glucose (70-110) mg/dL Calcium (8.4-10.5) mg/dL Total Bilirubin (0.2-1.3) mg/dL AST (14-36) U/L ALT (7-56) U/L Alkaline Phosphatase (38-126) U/L Total Protein (5.8-8.3) g/dL Albumin (3.0-4.8) g/dL Globulin gm/dL Albumin/Globulin Ratio (1.1-1.8) Urine Color (YELLOW) Urine Appearance (CLEAR) Urine pH (4.7-8.0) Ur Specific [place] (1.005-1.035) Urine Protein (<30 mg/dL) mg/dL Urine Glucose (UA) (NEGATIVE) mg/dL Urine Ketones (NEGATIVE) mg/dL Urine Blood (NEGATIVE) Urine Nitrate (NEGATIVE) Urine Bilirubin (NEGATIVE) Urine Urobilinogen (<1 E.U./dL) E.U./dL Ur Leukocyte Esterase (NEGATIVE) Ed/uL Urine RBC (0-2) /hpf Urine WBC (0-6) /hpf Ur Epithelial Cells (0-5) /hpf Urine Bacteria (NONE) /hpf Hyaline Casts (NONE) /hpf Influenza Typ A,B (EIA) (NEGATIVE) Laboratory Results - last 24 hr 09/09/18 09/09/18 09/09/18 08:00 12:06 17:05 WBC RBC Hgb Hct MCV MCH MCHC RDW Plt Count MPV Neut % (Auto) Lymph % (Auto) [place] % (Auto) Eos % (Auto) Baso % (Auto) Lymph # (Auto) [place] # (Auto) Eos # (Auto) Baso # (Auto) Absolute Neuts (auto) Sodium Potassium Chloride Carbon Dioxide Anion Gap BUN Creatinine Est GFR ( Amer) Est GFR (Non-Af Amer) POC Glucose (mg/dL) 101 124 H 156 H Random Glucose Calcium Total Bilirubin AST ALT Alkaline Phosphatase Total Protein Albumin Globulin Albumin/Globulin Ratio Urine Color Urine Appearance Urine pH Ur Specific [place] Urine Protein Urine Glucose (UA) Urine Ketones Urine Blood Urine Nitrate Urine Bilirubin Urine Urobilinogen Ur Leukocyte Esterase Urine RBC Urine WBC Ur Epithelial Cells Urine Bacteria Hyaline Casts Influenza Typ A,B (EIA) 09/09/18 09/09/18 09/09/18 18:45 21:46 22:48 WBC RBC Hgb Hct MCV MCH MCHC RDW Plt Count MPV Neut % (Auto) Lymph % (Auto) Jewell % (Auto) Eos % (Auto) Baso % (Auto) Lymph # (Auto) Jew[place] # (Auto) Eos # (Auto) Baso # (Auto) Absolute Neuts (auto) Sodium Potassium Chloride Carbon Dioxide Anion Gap BUN Creatinine Est GFR ( Amer) Est GFR (Non-Af Amer) POC Glucose (mg/dL) 164 H Random Glucose Calcium Total Bilirubin AST ALT Alkaline Phosphatase Total Protein Albumin Globulin Albumin/Globulin Ratio Urine Color Yellow Urine Appearance Sl cloudy Urine pH 6.0 Ur Specific [place] 1.020 Urine Protein Negative Urine Glucose (UA) Negative Urine Ketones Negative Urine Blood Negative Urine Nitrate Negative Urine Bilirubin Negative Urine Urobilinogen 0.2 Ur Leukocyte Esterase Moderate H Urine RBC 0 - 2 Urine WBC 5 - 10 H Ur Epithelial Cells 1 - 3 Urine Bacteria Small Hyaline Casts 0 - 2 Influenza Typ A,B (EIA) Negative for flu a/b 09/10/18 09/10/18 06:50 06:50 WBC 10.6 RBC 3.28 L Hgb 9.4 L Hct 28.1 L MCV 85.7 MCH 28.7 MCHC 33.5 RDW 12.7 Plt Count 218 MPV 9.0 Neut % (Auto) 68.7 H Lymph % (Auto) 18.2 L Jewell % (Auto) 10.8 H Eos % (Auto) 2.0 Baso % (Auto) 0.3 Lymph # (Auto) 1.9 Jewell # (Auto) 1.2 H Eos # (Auto) 0.2 Baso # (Auto) 0.03 Absolute Neuts (auto) 7.31 H Sodium 141 Potassium 3.9 Chloride 107 Carbon Dioxide 29 Anion Gap 9 L BUN 23 H Creatinine 0.9 Est GFR ( Amer) > 60 Est GFR (Non-Af Amer) > 60 POC Glucose (mg/dL) Random Glucose 129 H Calcium 8.5 Total Bilirubin 0.7 AST 44 H D ALT 25 Alkaline Phosphatase 73 Total Protein 6.3 Albumin 3.0 Globulin 3.3 Albumin/Globulin Ratio 0.9 L Urine Color Urine Appearance Urine pH Ur Specific [place] Urine Protein Urine Glucose (UA) Urine Ketones Urine Blood Urine Nitrate Urine Bilirubin Urine Urobilinogen Ur Leukocyte Esterase Urine RBC Urine WBC Ur Epithelial Cells Urine Bacteria Hyaline Casts Influenza Typ A,B (EIA) Radiology Impressions: Radiology Impressions Chest X-Ray 09/09/18 18:19 IMPRESSION: Right-sided perihilar infiltrate Fingerstick Blood Sugar Results: 168 Critical Care Progress Note - Nutrition Nutrition: Nutrition Category Date Time Status Diabetic [Consistent Carbohydrate] [DIET] Diets 09/07/18 Lunch Ordered Assessment/Plan - Assessment and Plan (Free Text) Assessment: Pt is a 68 yo female with a PMH of HTN, HLD, DM, who presented to the emergency department complaining of weakness and disorientation, pt was found to be having a STEMI. Plan: Neuro - AOx3 - Head CT: no acute findings [place] - Maintain MAP >65 - Trop 14.9, 27.1, 48.2 - amlodipine, ASA, lipitor, HCTZ, cozaar, metoprolol - ECHO LVH, EF 55% - Cardiac cath: 90% stenosis of circumflex at the ostium, LAD 50% stenosis at the ostium, with a 70-80% stenosis at the midportion - Cardio consulted, rec CABG at [facility] - ABG 29/7.45/43/27.9 GI - AST/ALT 44/25 - DM diet Heme - monitor H/H - Hgb 9.4 - INR 1.23 Nephro - BUN 23 - Cr 0.9 Endo - maintain euglycemia ID - WBC 10.6 - ceftriaxone Dispo: pt to be transferred to [facility] for CABG Pt seen, examined, assessment and plan discussed with Dr Dio Escobar PGY1 - Date & Time Date: 09/10/18 Time: 11:40 <Gurvinder Wharton - Last Filed: 09/10/18 13:00> CCU Objective - Vital Signs / Intake & Output Vital Signs (Last 4 hours): Vital Signs Pulse Resp BP Pulse Ox 09/10/18 11:41 93 L 09/10/18 11:01 133/70 09/10/18 10:00 79 22 137/66 96 09/10/18 09:00 83 21 137/74 99 Intake and Output (Last 8hrs): Intake & Output 09/09/18 09/10/18 09/10/18 22:59 06:59 14:59 Intake Total 120 120 Output Total 400 400 300 Balance -280 -280 -300 Weight 126 lb 2 oz Intake: Oral 120 120 Output: Urine 400 400 300 Urine, Voided 400 400 300 Other: # Bowel Movements 0 0 - Medications Active Medications: Active Medications Generic Name Dose Route Start Last Admin Trade Name Freq PRN Reason Stop Dose Admin Acetaminophen 650 mg 09/09/18 18:20 09/09/18 18:38 Tylenol 325mg Tab PO 650 mg Q6H PRN Administration Fever >100.4 F Amlodipine Besylate 5 mg 09/10/18 10:00 09/10/18 09:22 Norvasc PO 5 mg DAILY ARIS Administration Aspirin 81 mg 09/08/18 10:00 09/10/18 09:20 Aspirin Chewable PO 81 mg DAILY ARIS Administration Atorvastatin Calcium 10 mg 09/07/18 17:00 09/09/18 17:08 Lipitor PO 10 mg DIN ARIS Administration Enoxaparin Sodium 50 mg 09/08/18 13:15 09/10/18 02:17 Lovenox SC 50 mg Q12H ARIS Administration Protocol Hydrochlorothiazide 25 mg 09/10/18 10:00 09/10/18 09:20 Hydrodiuril PO 25 mg DAILY ARIS Administration Ceftriaxone Sodium 1 gm in 100 mls @ 100 mls/hr 09/10/18 10:00 09/10/18 09:22 Rocephin 1 Gram Ivpb IVPB 09/12/18 10:59 100 mls/hr DAILY ARIS Administration Protocol Insulin Human Lispro 0 units 09/09/18 11:30 09/10/18 11:15 Humalog Med SC 1 u ACHS ARIS Administration Protocol Losartan Potassium 100 mg 09/10/18 10:00 09/10/18 09:20 Cozaar PO 100 mg DAILY ARIS Administration Metoprolol Tartrate 12.5 mg 09/08/18 18:00 09/10/18 09:20 Lopressor PO 12.5 mg BID ARIS Administration Polyethylene Glycol 17 gm 09/09/18 10:00 09/10/18 09:21 Miralax PO 17 gm DAILY ARIS Administration - Patient Studies Lab Studies: Lab Studies 09/10/18 09/10/18 09/09/18 Range/Units 06:50 06:50 22:48 WBC 10.6 (4.5-11.0) 10^3/uL RBC 3.28 L (3.5-6.1) 10^6/uL Hgb 9.4 L (12.0-16.0) g/dL Hct 28.1 L (36.0-48.0) % MCV 85.7 (80.0-105.0) fl MCH 28.7 (25.0-35.0) pg MCHC 33.5 (31.0-37.0) g/dl RDW 12.7 (11.5-14.5) % Plt Count 218 (120.0-450.0) 10^3/uL MPV 9.0 (7.0-11.0) fl Neut % (Auto) 68.7 H (50.0-68.0) % Lymph % (Auto) 18.2 L (22.0-35.0) % Jewell % (Auto) 10.8 H (1.0-6.0) % Eos % (Auto) 2.0 (1.5-5.0) % Baso % (Auto) 0.3 (0.0-3.0) % Lymph # (Auto) 1.9 (1.2-3.4) Jewell # (Auto) 1.2 H (0.1-0.6) Eos # (Auto) 0.2 (0.0-0.7) Baso # (Auto) 0.03 (0.0-2.0) K/mm3 Absolute Neuts (auto) 7.31 H (1.4-6.5) Sodium 141 (132-148) mmol/L Potassium 3.9 (3.6-5.0) mmol/L Chloride 107 (98-107) mmol/L Carbon Dioxide 29 (21-33) mmol/L Anion Gap 9 L (10-20) BUN 23 H (7-21) mg/dL Creatinine 0.9 (0.7-1.2) mg/dl Est GFR ( Amer) > 60 Est GFR (Non-Af Amer) > 60 POC Glucose (mg/dL) (65-110) mg/dL Random Glucose 129 H (70-110) mg/dL Calcium 8.5 (8.4-10.5) mg/dL Total Bilirubin 0.7 (0.2-1.3) mg/dL AST 44 H D (14-36) U/L ALT 25 (7-56) U/L Alkaline Phosphatase 73 (38-126) U/L Total Protein 6.3 (5.8-8.3) g/dL Albumin 3.0 (3.0-4.8) g/dL Globulin 3.3 gm/dL Albumin/Globulin Ratio 0.9 L (1.1-1.8) Urine Color Yellow (YELLOW) Urine Appearance Sl cloudy (CLEAR) Urine pH 6.0 (4.7-8.0) Ur Specific [place] 1.020 (1.005-1.035) Urine Protein Negative (<30 mg/dL) mg/dL Urine Glucose (UA) Negative (NEGATIVE) mg/dL Urine Ketones Negative (NEGATIVE) mg/dL Urine Blood Negative (NEGATIVE) Urine Nitrate Negative (NEGATIVE) Urine Bilirubin Negative (NEGATIVE) Urine Urobilinogen 0.2 (<1 E.U./dL) E.U./dL Ur Leukocyte Esterase Moderate H (NEGATIVE) Ed/uL Urine RBC 0 - 2 (0-2) /hpf Urine WBC 5 - 10 H (0-6) /hpf Ur Epithelial Cells 1 - 3 (0-5) /hpf Urine Bacteria Small (NONE) /hpf Hyaline Casts 0 - 2 (NONE) /hpf Influenza Typ A,B (EIA) (NEGATIVE) 09/09/18 09/09/18 09/09/18 Range/Units 21:46 18:45 17:05 WBC (4.5-11.0) 10^3/uL RBC (3.5-6.1) 10^6/uL Hgb (12.0-16.0) g/dL Hct (36.0-48.0) % MCV (80.0-105.0) fl MCH (25.0-35.0) pg MCHC (31.0-37.0) g/dl RDW (11.5-14.5) % Plt Count (120.0-450.0) 10^3/uL MPV (7.0-11.0) fl Neut % (Auto) (50.0-68.0) % Lymph % (Auto) (22.0-35.0) % Jewell % (Auto) (1.0-6.0) % Eos % (Auto) (1.5-5.0) % Baso % (Auto) (0.0-3.0) % Lymph # (Auto) (1.2-3.4) Jewell # (Auto) (0.1-0.6) Eos # (Auto) (0.0-0.7) Baso # (Auto) (0.0-2.0) K/mm3 Absolute Neuts (auto) (1.4-6.5) Sodium (132-148) mmol/L Potassium (3.6-5.0) mmol/L Chloride (98-107) mmol/L Carbon Dioxide (21-33) mmol/L Anion Gap (10-20) BUN (7-21) mg/dL Creatinine (0.7-1.2) mg/dl Est GFR ( Amer) Est GFR (Non-Af Amer) POC Glucose (mg/dL) 164 H 156 H (65-110) mg/dL Random Glucose (70-110) mg/dL Calcium (8.4-10.5) mg/dL Total Bilirubin (0.2-1.3) mg/dL AST (14-36) U/L ALT (7-56) U/L Alkaline Phosphatase (38-126) U/L Total Protein (5.8-8.3) g/dL Albumin (3.0-4.8) g/dL Globulin gm/dL Albumin/Globulin Ratio (1.1-1.8) Urine Color (YELLOW) Urine Appearance (CLEAR) Urine pH (4.7-8.0) Ur Specific [place] (1.005-1.035) Urine Protein (<30 mg/dL) mg/dL Urine Glucose (UA) (NEGATIVE) mg/dL Urine Ketones (NEGATIVE) mg/dL Urine Blood (NEGATIVE) Urine Nitrate (NEGATIVE) Urine Bilirubin (NEGATIVE) Urine Urobilinogen (<1 E.U./dL) E.U./dL Ur Leukocyte Esterase (NEGATIVE) Ed/uL Urine RBC (0-2) /hpf Urine WBC (0-6) /hpf Ur Epithelial Cells (0-5) /hpf Urine Bacteria (NONE) /hpf Hyaline Casts (NONE) /hpf Influenza Typ A,B (EIA) Negative for flu a/b (NEGATIVE) Laboratory Results - last 24 hr 09/09/18 09/09/18 09/09/18 17:05 18:45 21:46 WBC RBC Hgb Hct MCV MCH MCHC RDW Plt Count MPV Neut % (Auto) Lymph % (Auto) [place] % (Auto) Eos % (Auto) Baso % (Auto) Lymph # (Auto) [place] # (Auto) Eos # (Auto) Baso # (Auto) Absolute Neuts (auto) Sodium Potassium Chloride Carbon Dioxide Anion Gap BUN Creatinine Est GFR ( Amer) Est GFR (Non-Af Amer) POC Glucose (mg/dL) 156 H 164 H Random Glucose Calcium Total Bilirubin AST ALT Alkaline Phosphatase Total Protein Albumin Globulin Albumin/Globulin Ratio Urine Color Urine Appearance Urine pH Ur Specific [place] Urine Protein Urine Glucose (UA) Urine Ketones Urine Blood Urine Nitrate Urine Bilirubin Urine Urobilinogen Ur Leukocyte Esterase Urine RBC Urine WBC Ur Epithelial Cells Urine Bacteria Hyaline Casts Influenza Typ A,B (EIA) Negative for flu a/b 09/09/18 09/10/18 09/10/18 22:48 06:50 06:50 WBC 10.6 RBC 3.28 L Hgb 9.4 L Hct 28.1 L MCV 85.7 MCH 28.7 MCHC 33.5 RDW 12.7 Plt Count 218 MPV 9.0 Neut % (Auto) 68.7 H Lymph % (Auto) 18.2 L [place] % (Auto) 10.8 H Eos % (Auto) 2.0 Baso % (Auto) 0.3 Lymph # (Auto) 1.9 Jewell # (Auto) 1.2 H Eos # (Auto) 0.2 Baso # (Auto) 0.03 Absolute Neuts (auto) 7.31 H Sodium 141 Potassium 3.9 Chloride 107 Carbon Dioxide 29 Anion Gap 9 L BUN 23 H Creatinine 0.9 Est GFR ( Amer) > 60 Est GFR (Non-Af Amer) > 60 POC Glucose (mg/dL) Random Glucose 129 H Calcium 8.5 Total Bilirubin 0.7 AST 44 H D ALT 25 Alkaline Phosphatase 73 Total Protein 6.3 Albumin 3.0 Globulin 3.3 Albumin/Globulin Ratio 0.9 L Urine Color Yellow Urine Appearance Sl cloudy Urine pH 6.0 Ur Specific [place] 1.020 Urine Protein Negative Urine Glucose (UA) Negative Urine Ketones Negative Urine Blood Negative Urine Nitrate Negative Urine Bilirubin Negative Urine Urobilinogen 0.2 Ur Leukocyte Esterase Moderate H Urine RBC 0 - 2 Urine WBC 5 - 10 H Ur Epithelial Cells 1 - 3 Urine Bacteria Small Hyaline Casts 0 - 2 Influenza Typ A,B (EIA) Radiology Impressions: Radiology Impressions Chest X-Ray 09/09/18 18:19 IMPRESSION: Right-sided perihilar infiltrate Critical Care Progress Note - Nutrition Nutrition: Nutrition Category Date Time Status Diabetic [Consistent Carbohydrate] [DIET] Diets 09/07/18 Lunch Ordered Assessment/Plan - Assessment and Plan (Free Text) Plan: Patient seen and examined on rounds with resident, agree with note with following additions/exceptions: Patient is 68yo female with PMHx PMH of HTN, HLD, DM admitted with STEMI, found to have 3VD Currently afebrile, HD stable, comfortable in NAD, doing well, no CP, SOB Awaiting transfer to [facility] for CABG Cont with ASA, Statin, BB; hold Plavix BP control FS control GI ppx DVT ppx Transfer to tele
--- NOTE | 2018-09-10 12:23 | PN ---
DATE: 09/10/2018 CARDIOLOGY FOLLOWUP SUBJECTIVE: The patient is without chest pain, without shortness of breath. PHYSICAL EXAMINATION VITAL SIGNS: Blood pressure 153/77 and heart rates in the 90s. NECK: Negative JVD. LUNGS: Without rales. HEART: Reveals S1 and S2. EXTREMITIES: Without edema. LABORATORY DATA: BUN and creatinine are normal. Glucose is 129. Hemoglobin is 9.4 and white count is 10.6. IMPRESSION: 1. Triple-vessel coronary artery disease. 2. Hypertension. 3. Left main coronary artery disease. 4. Peripheral vascular disease. 5. Diabetes mellitus. 6. Hypertension. Given these findings, we are still awaiting transfer to [facility] for coronary artery bypass surgery. I have discussed this with the family in detail. Jim Lopez MD
[2018-09-10 16:50] VITALS: BP 138/62; PULSE 85; RESP 22; TEMP 99.8; O2SAT 91
== END 2018-09-10 16:30 | disposition designated cancer center or children's hospital (05) ==
LOC: CATH 08:31 → CCU 11:19 → CATH 09-10 16:30
PROVIDERS: ATTEND Internal Medicine Cardiovascular Disease
DX: I21.19 ST elevation (STEMI) myocardial infarction involving other coronary artery of inferior wall (principal); I25.10 Atherosclerotic heart disease of native coronary artery without angina pectoris; I10 Essential (primary) hypertension; E11.51 Type 2 diabetes mellitus with diabetic peripheral angiopathy without gangrene; E78.00 Pure hypercholesterolemia, unspecified; E78.5 Hyperlipidemia, unspecified; Z79.82 Long term (current) use of aspirin; Z79.4 Long term (current) use of insulin; Z95.1 Presence of aortocoronary bypass graft
CPT/HCPCS: 80048; 80053 ×2; 81001; 82948 ×3; 83735; 84100; 84145; 85025 ×2; 85027; 85610; 87040; 87081; 87086; 87804; 93458; 99152; C1769; C2629; J0696; J1644; J1650 ×3; J1940; J2250; J2310; J3010; J7030 ×2; Q9966